=== PATIENT | male | born 1965 ===

== ENCOUNTER → 2017-08-14 | Outpatient (CLI) | payer BC ==
[2017-08-14 14:12] LABS: ALT/SGPT 31 U/L (12-78); AST/SGOT 25 U/L (15-37); BLOOD UREA NITROGEN 13 mg/dl (7-18); BUN/CREATININE RATIO 14.9 (10-20); CARBON DIOXIDE 28 mmol/L (21-32); CHLORIDE 99 mmol/L (98-107); CHOLESTEROL 165 mg/dl (0-200); CREATININE 0.88 mg/dl (0.60-1.40); GLUCOSE 104 mg/dl (70-99); POTASSIUM 3.9 mmol/L (3.5-5.1); SODIUM 135 mmol/L (136-145); TRIGLYCERIDES 164 mg/dl (0-150); VERY LOW DENSITY LIPOPROT CALC 33 mg/dl
[2017-08-14 14:14] LABS: ALKALINE PHOSPHATASE 70 U/L (45-117); CHOLESTEROL/HDL RATIO 3.5; HDL CHOLESTEROL 47 mg/dl; LDL CHOLESTEROL CALCULATED 85 mg/dl
== END | disposition home or self-care (01) ==
LOC: C.LABSPEC 13:30
PROVIDERS: ATTEND Family Medicine
DX: Z00.00 Encounter for general adult medical examination without abnormal findings (principal)